=== PATIENT | male | born 1985 | race Caucasian/White ===

== ENCOUNTER 2016-11-14 18:12 | Emergency (ER) | payer SELFPAY ==
[2016-11-14] MEDS ORDERED: ONDANSETRON 4 MG/2 ML VIAL IVP ONE (18:42)
[2016-11-14] MEDS ORDERED: fentaNYL 100 MCG/2 ML INJ IVP ONE (18:42)
[2016-11-14] MEDS ORDERED: NS 1,000 ML IV ONE (18:42)
[2016-11-14 18:49] LABS: % IMMATURE GRANULYOCYTES 0.1 % (0.0-1.1); ABSOLUTE IMMATURE GRANULOCYTES 0.01 10^3/uL (0.00-0.10); ADD DIFF? NO; ADD MORPH? NO; ADD SCAN? NO; ATYPICAL LYMPHOCYTE FLAG 0 (0-99); FRAGMENT RBC FLAG 0 (0-99); LEFT SHIFT FLG 0 (0-99); LIPEMIA HEMOLYSIS FLAG 90 (0-99); MEAN CELL HEMOGLOBIN 31.1 pg (27.9-34.1); MEAN CELL HEMOGLOBIN CONCENTR. 34.8 g/dL (32.4-36.7); MEAN CELL VOLUME 89.4 fL (81.5-99.8); MEAN PLATELET VOLUME 9.7 fL (8.7-11.7); PLATELET CLUMPS FLAG 0 (0-99); PLATELET COUNT 324 10^3/uL (150-400); RED CELL DISTRIBUTION WIDTH 11.9 % (11.5-15.2)
--- NOTE | 2016-11-14 18:49 | EDPHY ---
H & P Time Seen by Provider: 11/14/16 18:25 HPI/ROS: CHIEF COMPLAINT: Abdominal pain HISTORY OF PRESENT ILLNESS: 31-year-old transgender patient presents with 24 hours of left-sided upper abdominal pain pressure and bloating. Decreased appetite and associated intermittent nausea. States that there is also decreased bowel movement and decreased stool. No urinary symptoms. Patient denies any trauma. No associated fever or chills. It is not really positional but trying to eat or drink anything makes the symptoms worse. REVIEW OF SYSTEMS: Eye: no change in vision ENT: no sore throat Cardiac: no chest pain or syncope Pulmonary: no cough or SOB Abdomen: HPI Musculoskeletal: no back pain Skin: no rash Neuro: no headache Constitutional: no fever : no urinary symptoms A comprehensive 10 point review of systems is otherwise negative aside from elements mentioned in the history of present illness. PAST MEDICAL HISTORY: Chest reconstructive surgery for gender, kidney stones, urinary tract infection. Social history: Here with 2 roommates, occasional alcohol General Appearance: Alert and conversant, cooperative. Eyes: No scleral icterus. ENT, Mouth: Normal mucous membranes. Respiratory: Normal respiratory effort, breath sounds equal, lungs are clear to auscultation. Cardiovascular: Regular rate and rhythm. Gastrointestinal: Left upper quadrant and epigastric abdominal tenderness without rebound or guarding. Neurological: Alert and oriented x3. Normally conversant. Face symmetric, normal movement and sensation in all extremities. Skin: Warm and dry, no rashes. Musculoskeletal: No peripheral edema and no joint swelling. Psychiatric: Not agitated. Emergency Department course/MDM: Fentanyl 100 mcg IV, Zofran [address] scanning discussed and consented. The urinalysis. 2001: [place], constipation, otherwise negative. 2109: Urinalysis resulted with pyuria consistent with urinary infection, likely pyelonephritis with back pain. Ceftriaxone 1 g IV. Results discussed at this time. Primary care follow-up. I think outpatient treatment is reasonable as the patient tolerates oral medication and pain is better at this time. Smoking Status: Former smoker Constitutional: Initial Vital Signs Temperature (C) 36.9 C 11/14/16 18:16 Heart Rate 54 L 11/14/16 18:16 Respiratory Rate 20 11/14/16 18:16 Blood Pressure 123/71 H 11/14/16 18:16 O2 Sat (%) 95 11/14/16 18:16 O2 Delivery Mode Nasal Cannula Allergies/Adverse Reactions: No Known Allergies Allergy (Unverified 11/14/16 18:15) Home Medications: Medication Instructions Recorded Cephalexin [Keflex] 500 mg PO QID #40 cap 11/14/16 Flexeril 11/14/16 TESTOSTERONE 11/14/16 Medical Decision Making - Diagnostics Imaging Results: Imaging Impressions Abdomen CT 11/14/16 19:30 Impression: 1. Constipation. 2. No CT evidence of appendicitis, abscess or bowel obstruction. 3. No urinary tract obstruction, nephrolithiasis, or perinephric fluid. 4. No hepatosplenomegaly, ascites, or significant adenopathy. Findings and recommendations discussed with Emergency Department physician, JAMISON OATES at 20:09 hour, 11/14/2016. Final report concurs with initial preliminary interpretation. Differential Diagnosis: Differential considered including but not limited to kidney stone, pyelonephritis, intra-abdominal perforation, bowel obstruction, intestinal infection. - Data Points Laboratory Results: Laboratory Results 11/14/16 18:30 11/14/16 18:30 11/14/16 20:20 Urine RBC 10-15 /hpf H /hpf (0-3) Urine WBC 25-50 /hpf H /hpf (0-3) Ur Epithelial Cells TRACE /lpf /lpf (NONE-1+) Urine Mucus TRACE /lpf /lpf (NONE-1+) Medications Given: Discontinued Medications Hydrocodone Bitart/Acetaminophen ([place] 5/325mg Prepack#6) 1 btl TAKEHOME EDNOW ONE Stop: 11/14/16 21:18 Last Admin: 11/14/16 21:48 Dose: 1 btl Fentanyl (Sublimaze) 100 mcg IVP EDNOW ONE Stop: 11/14/16 18:43 Last Admin: 11/14/16 19:01 Dose: 100 mcg Sodium Chloride (Ns) 1,000 mls @ 0 mls/hr IV EDNOW ONE; Wide Open PRN Reason: Protocol Stop: 11/14/16 18:43 Last Admin: 11/14/16 19:01 Dose: 1,000 mls Ceftriaxone Sodium/Dextrose (Rocephin 1 Gm (Premix)) 50 mls @ 100 mls/hr IV EDNOW ONE PRN Reason: Protocol Stop: 11/14/16 21:39 Last Admin: 11/14/16 21:17 Dose: 50 mls Ondansetron HCl (Zofran) 4 mg IVP EDNOW ONE Stop: 11/14/16 18:43 Last Admin: 11/14/16 19:01 Dose: 4 mg Departure - Departure Disposition: Home, Routine, Self-Care Clinical Impression: Pyelonephritis Abdominal pain Qualifiers: Abdominal location: left upper quadrant Qualified Code(s): R10.12 - Left upper quadrant pain Condition: Good Instructions: Hydrocodone/Acetaminophen (By mouth), Kidney Infection (ED), Acute Abdominal Pain (ED) Referrals: Sondra Rey DO [Doctor of Osteopathy] - 5-7 days, call for appt. (monomer recovery supervisor PCP referral) Prescriptions: Cephalexin [Keflex] 500 mg PO QID #40 cap
[2016-11-14 19:15] LABS: ALBUMIN 4.7 g/dL (3.5-5.0); ALKALINE PHOSPHATASE 75 IU/L (38-126); ANION GAP 14 mEq/L (8-16); BILIRUBIN,TOTAL 0.8 mg/dL (0.1-1.4); BILIRUBIN-CONJUGATED 0.4 mg/dL (0.0-0.5); BILIRUBIN-UNCONJUGATED 0.4 mg/dL (0.0-1.1); CARBON DIOXIDE 27 mEq/l (22-31); CHLORIDE 97 mEq/L (97-110); GLOMERULAR FILTRATION RATE > 60; GLUCOSE 87 mg/dL (70-100); POTASSIUM 4.3 mEq/L (3.5-5.2); SODIUM 138 mEq/L (134-144); TOTAL PROTEIN 7.8 g/dL (6.3-8.2)
[2016-11-14] MEDS ORDERED: IOPAMIDOL (ISOVUE-300) 100 ML BTL ONE (19:31)
[2016-11-14 20:06] VITALS: O2SAT 96
[2016-11-14 20:38] LABS: MUCUS TRACE /lpf (NONE-1+); WBC,URINE 25-50 /hpf (0-3)
[2016-11-14] MEDS ORDERED: HYDROCOD/APAP 5/325 PREPACK#6 BTL TAKEHOME ONE (21:17)
[2016-11-14 21:52] VITALS: BP 120/61; PULSE 64; RESP 16; TEMP 97.9
[2016-11-15 08:16] LABS: ALANINE AMINOTRANSFERASE 35 IU/L (21-72); ASPARTATE AMINOTRANSFERASE 48 IU/L (17-59); CREATININE 0.9 mg/dL (0.7-1.3)
[2016-11-15 08:17] LABS: HEMATOCRIT 46.3 % (40.0-51.0); HEMOGLOBIN 16.1 g/dL (13.7-17.5); RED BLOOD CELL COUNT 5.18 10^6/uL (4.40-6.38)
== END 2016-11-14 21:51 | disposition home or self-care (01) ==
LOC: EDSEX 18:12
DX: N12 Tubulo-interstitial nephritis, not specified as acute or chronic (principal); E86.9 Volume depletion, unspecified; Z87.891 Personal history of nicotine dependence
CPT/HCPCS: 96365; J0696; J2405; J3010; Q9967